=== PATIENT | male | born 1995 | race Caucasian/White ===

== ENCOUNTER 2016-03-10 13:14 | Emergency (ER) | payer SELFPAY ==
[~2016-03-10] VITALS: Ht 167.6 cm; Wt 73.9 kg
[2016-03-10] MEDS ORDERED: MOTRIN800 MG PO (14:58)
[2016-03-10] MEDS ORDERED: ULTRACET1 TABLET PO (14:58)
[2016-03-10 15:15] VITALS: BP 144/89
== END 2016-03-10 15:18 | disposition home or self-care (01) ==
LOC: EME 13:14
DX: M23.92 Unspecified internal derangement of left knee (principal); X50.9XXA Other and unspecified overexertion or strenuous movements or postures, initial encounter; Y93.67 Activity, basketball
CPT/HCPCS: 73564; 99281; 99284